=== PATIENT | female | born 2000 | race Caucasian/White ===

== ENCOUNTER 2022-12-09 11:52 | Emergency (ER) | payer BC ==
[2022-12-09 12:22] LABS: Bilirubin 1+ (Negative); Blood, Urine 10 (Negative); Clarity Cloudy (Clear); Glucose, Urine (Dipstick) Normal (Negative); Ketone, Urine 50 mg/dL (Negative); Leukocyte 500 (Negative); Nitrite Negative (Negative); Protein, Urine (Dipstick) 30 mg/dl (Neg-Trace); Specific Gravity, Urine 1.025 (1.005-1.030)
[2022-12-09 12:25] LABS: #Monocytes 0.8 10x3/uL (0.0-1.1); #Neutrophils 8.4 10x3/uL (1.5-8.4); %Basophils 0.3 % (0.0-2.0); %Eosinophils 2.6 % (0.0-6.0); %Lymphocytes 18.8 % (18.0-47.0); %Monocytes 6.5 % (0.0-10.0); %Neutrophils 71.5 % (40.0-75.0); Hemoglobin 12.9 g/dL (12.0-15.5); Mean Corpuscular HGB CONC 33.3 g/dL (32.0-36.0); Mean Corpuscular Hemoglobin 29.5 pg (27.0-33.0); Mean Corpuscular Volume 88.4 fl (81.6-98.3); Mean Platelet Volume 8.8 fl (7.4-10.4); Platelet Count 328 10x3/uL (150-450); RBC Distribution Width 12.3 % (11.5-14.5); Red Blood Cell (RBC) Count 4.38 10x6/uL (3.90-5.03); White Blood Cell (WBC) Count 11.7 10x3/uL (3.5-10.5)
[2022-12-09 12:26] LABS: #Eosinphils 0.3 10x3/uL (0.0-0.5)
[2022-12-09 12:33] LABS: Bacteria/HPF 3+ HPF (None Seen); Mucous/LPF 2+ LPF (<2+); Squamous Epithelial 21-50 HPF (0-3)
[2022-12-09 12:34] LABS: White Blood Cell Cast 0-3 LPF (None Seen)
[2022-12-09] MEDS ORDERED: Ondansetron PF 4 MG/2 ML Vial ONE (12:35)
[2022-12-09 12:39] LABS: ALT (SGPT) 53 U/L (8-55); AST (SGOT) 28 U/L (5-34); Albumin 3.7 g/dL (3.5-5.0); Alkaline Phosphatase 81 U/L (40-110); Anion Gap 17 mmol/L (10-20); BUN (Urea Nitrogen) 5 mg/dL (7.0-18.7); Bilirubin, Total 0.3 mg/dL (0.2-1.2); Calc. Creatinine Clearance 0 mL/min (70-130); Calcium 9.2 mg/dL (7.8-10.44); Carbon Dioxide 18 mmol/L (22-29); Chloride 107 mmol/L (98-107); Estimated GFR 128; Globulin 3.6 g/dL (2.4-3.5); Glucose 92 mg/dL (70-105); Potassium 3.7 mmol/L (3.5-5.1); Protein, Total 7.3 g/dL (6.0-8.3); Sodium 138 mmol/L (136-145)
[2022-12-09] MEDS ORDERED: cefTRIAXone (ROCEPHIN) 1 GM VIAL ONE (13:01)
[2022-12-09] MEDS ORDERED: Acetaminophen 500 MG TAB ONE (14:49)
== END 2022-12-09 15:05 | disposition home or self-care (01) ==
LOC: CSHERS 11:52
DX: O23.42 Unspecified infection of urinary tract in pregnancy, second trimester (principal); O99.352 Diseases of the nervous system complicating pregnancy, second trimester; G40.909 Epilepsy, unspecified, not intractable, without status epilepticus; Z3A.18 18 weeks gestation of pregnancy
CPT/HCPCS: 36415; 76815; 80053; 81003; 81015; 84702; 85025; 86900; 86901; 96374; 96375; J0696; J2405

== ENCOUNTER 2023-03-16 22:55 | Day surgery (SDC) | payer BC ==
[2023-03-16 23:22] VITALS: BMI 33.4
[2023-03-16 23:51] LABS: Fetal Membranes Rupture No Membranes Rupture (No Rupture)
[2023-03-17] MEDS ORDERED: hydrALAZINE 20 MG/ML VIAL SLOW IVP PRN
[2023-03-17] MEDS ORDERED: Lactated Ringer's 1,000 ML IV SCH (01:15)
[2023-03-17 01:44] LABS: Bilirubin Neg (Negative); Blood, Urine Negative (Negative); Clarity Clear (Clear); Glucose, Urine (Dipstick) Normal (Negative); Ketone, Urine Negative (Negative); Leukocyte 25 (Negative); Nitrite Negative (Negative); Protein, Urine (Dipstick) 15 mg/dl (Neg-Trace); Specific Gravity, Urine 1.015 (1.005-1.030); Urobilinogen Normal mg/dL (Less than 2); pH, Urine 6.5 (5.0-9.0)
[2023-03-17 01:58] LABS: Bacteria/HPF None Seen HPF (None Seen); CAUTI Indications for Culture Dysuria,urgency,freq; RBC/HPF None Seen HPF (0-3); Squamous Epithelial 0-3 HPF (0-3); WBC/HPF 0-3 HPF (0-3)
[2023-03-17 01:59] LABS: Urine Culture Reflex No No
== END 2023-03-17 02:20 | disposition home or self-care (01) ==
LOC: CSHLD/OP 22:55
PROVIDERS: ATTEND Obstetrics & Gynecology
DX: O47.03 False labor before 37 completed weeks of gestation, third trimester (principal); O41.93X0 Disorder of amniotic fluid and membranes, unspecified, third trimester, not applicable or unspecified; O99.343 Other mental disorders complicating pregnancy, third trimester; F41.9 Anxiety disorder, unspecified; O23.03 Infections of kidney in pregnancy, third trimester; N12 Tubulo-interstitial nephritis, not specified as acute or chronic; O99.353 Diseases of the nervous system complicating pregnancy, third trimester; G40.909 Epilepsy, unspecified, not intractable, without status epilepticus; Z88.8 Allergy status to other drugs, medicaments and biological substances; Z3A.31 31 weeks gestation of pregnancy; Z79.899 Other long term (current) drug therapy
CPT/HCPCS: 81001; 84112; 87480; 87510; 87660

== ENCOUNTER 2023-03-25 18:27 | Observation (INO) | payer BC ==
[2023-03-25] MEDS ORDERED: hydrALAZINE 20 MG/ML VIAL SLOW IVP PRN (19:44)
[2023-03-25] MEDS ORDERED: Lactated Ringer's 1,000 ML IV SCH ×2 (19:45→23:00)
[2023-03-25 20:37] VITALS: BMI 33.9
[2023-03-25 20:39] LABS: Bilirubin Neg (Negative); Blood, Urine Negative (Negative); Clarity Clear (Clear); Glucose, Urine (Dipstick) Normal (Negative); Ketone, Urine 150 mg/dL (Negative); Leukocyte Negative (Negative); Nitrite Negative (Negative); Protein, Urine (Dipstick) Negative (Neg-Trace); Specific Gravity, Urine 1.015 (1.005-1.030); Urobilinogen Normal mg/dL (Less than 2); pH, Urine 6.5 (5.0-9.0)
[2023-03-25 20:50] LABS: Bacteria/HPF Rare-Few HPF (None Seen); CAUTI Indications for Culture Pregnancy; RBC/HPF None Seen HPF (0-3); Squamous Epithelial 0-3 HPF (0-3); Urine Culture Reflex Yes Yes; WBC/HPF 0-3 HPF (0-3)
[2023-03-25 20:57] LABS: Fetal Membranes Rupture No Membranes Rupture (No Rupture)
[2023-03-25 21:59] LABS: #Eosinphils 0.2 10x3/uL (0.0-0.5); #Monocytes 0.8 10x3/uL (0.0-1.1); #Neutrophils 9.7 10x3/uL (1.5-8.4); %Basophils 0.2 % (0.0-2.0); %Eosinophils 1.6 % (0.0-6.0); %Lymphocytes 18.7 % (18.0-47.0); %Neutrophils 72.6 % (40.0-75.0); Hematocrit 26.6 % (34.9-44.5); Hemoglobin 8.7 g/dL (12.0-15.5); Mean Corpuscular HGB CONC 32.7 g/dL (32.0-36.0); Mean Corpuscular Hemoglobin 27.2 pg (27.0-33.0); Mean Corpuscular Volume 83.1 fl (81.6-98.3); Platelet Count 294 10x3/uL (150-450); RBC Distribution Width 12.8 % (11.5-14.5); White Blood Cell (WBC) Count 13.3 10x3/uL (3.5-10.5)
[2023-03-25 22:26] LABS: ALT (SGPT) 15 U/L (8-55); AST (SGOT) 16 U/L (5-34); Alkaline Phosphatase 130 U/L (40-110); Anion Gap 14 mmol/L (10-20); BUN (Urea Nitrogen) 4 mg/dL (7.0-18.7); Bilirubin, Total 0.2 mg/dL (0.2-1.2); Calc. Creatinine Clearance 245 mL/min (70-130); Calcium 8.1 mg/dL (7.8-10.44); Carbon Dioxide 20 mmol/L (22-29); Chloride 107 mmol/L (98-107); Estimated GFR 131; Globulin 2.3 g/dL (2.4-3.5); Glucose 85 mg/dL (70-105); Potassium 3.2 mmol/L (3.5-5.1); Protein, Total 5.3 g/dL (6.0-8.3); Sodium 138 mmol/L (136-145)
[2023-03-25] MEDS ORDERED: Ondansetron PF 4 MG/2 ML Vial IVP PRN (22:49)
[2023-03-25] MEDS ORDERED: Promethazine HCl 25 MG/ML VIAL IM PRN (22:49)
[2023-03-25] MEDS: Betamet Acet/Betamet Na Ph 30 MG/5 ML VIAL IM SCH (23:10)
[2023-03-25] MEDS ORDERED: Potassium Bicarbonate/Cit Ac 20 MEQ TAB PO SCH (23:15)
[2023-03-26] MEDS ORDERED: Acetaminophen 500 MG TAB PO PRN (05:05)
[2023-03-26] MEDS ORDERED: NIFEdipine 10 MG CAP PO SCH (09:15)
[2023-03-26] MEDS ORDERED: fentaNYL 50 mcg/mL 1 mL Vial SLOW IVP SCH (09:15)
[2023-03-26] MEDS ORDERED: NIFEdipine 10 MG CAP PO PRN (10:30)
[2023-03-26] MEDS: NIFEdipine 10 MG CAP PO PRN ×2 (15:53→21:14)
[2023-03-26] MEDS: Betamet Acet/Betamet Na Ph 30 MG/5 ML VIAL IM SCH (23:44)
[2023-03-27 09:27] LABS: Group B Streptococcus by PCR Not Detected (NotDetected)
== END 2023-03-27 00:28 | disposition home or self-care (01) ==
LOC: CSHLD/OP 18:27 → CSHLD 22:49
PROVIDERS: ADMIT Obstetrics & Gynecology; ATTEND Obstetrics & Gynecology
DX: O47.03 False labor before 37 completed weeks of gestation, third trimester (principal); O99.013 Anemia complicating pregnancy, third trimester; D64.9 Anemia, unspecified; O21.2 Late vomiting of pregnancy; O99.613 Diseases of the digestive system complicating pregnancy, third trimester; R19.7 Diarrhea, unspecified; Z3A.33 33 weeks gestation of pregnancy; Z88.8 Allergy status to other drugs, medicaments and biological substances
CPT/HCPCS: 76815; 80053; 81001; 84112; 85025; 87086; 87480; 87510; 87653; 87660; 99285; J0702; J3010; J7120

== ENCOUNTER 2023-04-01 16:20 | Day surgery (SDC) | payer BC ==
[2023-04-01 16:59] VITALS: BMI 34.2
[2023-04-01] MEDS ORDERED: hydrALAZINE 20 MG/ML VIAL SLOW IVP PRN (17:15)
[2023-04-01] MEDS ORDERED: Lactated Ringer's 1,000 ML IV SCH (17:30)
[2023-04-01 17:41] LABS: Fetal Membranes Rupture No Membranes Rupture (No Rupture)
[2023-04-01 18:39] LABS: Amphetamine Not Detected (NotDetected); Barbiturates Screen Not Detected (NotDetected); Benzodiazepine Screen Not Detected (NotDetected); Cocaine Metabolite Screen Not Detected (NotDetected); Methadone Not Detected (NotDetected); Methamphetamine Not Detected (NotDetected); Opiate Screen Not Detected (NotDetected); Oxycodone Screen Not Detected (NotDetected); Phencyclidine (PCP) Not Detected (NotDetected); THC/Cannabinoid Screen Not Detected (NotDetected); Tricyclic Screen Not Detected (NotDetected)
== END 2023-04-01 19:31 | disposition home or self-care (01) ==
LOC: CSHLD/OP 16:20
PROVIDERS: ATTEND Obstetrics & Gynecology
DX: O47.03 False labor before 37 completed weeks of gestation, third trimester (principal); Z3A.34 34 weeks gestation of pregnancy; Z88.8 Allergy status to other drugs, medicaments and biological substances
CPT/HCPCS: 80306; 84112; 96360; 96361; 99285

== ENCOUNTER 2023-04-15 21:37 | Day surgery (SDC) | payer BC ==
[2023-04-15] MEDS ORDERED: hydrALAZINE 20 MG/ML VIAL SLOW IVP PRN (22:39)
[2023-04-15] MEDS ORDERED: Lactated Ringer's 1,000 ML IV SCH (22:45)
[2023-04-15 23:20] LABS: #Eosinphils 0.1 10x3/uL (0.0-0.5); #Monocytes 0.8 10x3/uL (0.0-1.1); #Neutrophils 9.2 10x3/uL (1.5-8.4); %Basophils 0.2 % (0.0-2.0); %Lymphocytes 18.7 % (18.0-47.0); %Neutrophils 73.2 % (40.0-75.0); Hematocrit 29.1 % (34.9-44.5); Hemoglobin 9.3 g/dL (12.0-15.5); Mean Corpuscular Hemoglobin 25.5 pg (27.0-33.0); Mean Corpuscular Volume 79.7 fl (81.6-98.3); Platelet Count 329 10x3/uL (150-450); RBC Distribution Width 13.4 % (11.5-14.5); Red Blood Cell (RBC) Count 3.65 10x6/uL (3.90-5.03); White Blood Cell (WBC) Count 12.6 10x3/uL (3.5-10.5)
[2023-04-15 23:33] LABS: ALT (SGPT) 25 U/L (8-55); AST (SGOT) 18 U/L (5-34); Albumin 3.2 g/dL (3.5-5.0); Alkaline Phosphatase 185 U/L (40-110); Anion Gap 14 mmol/L (10-20); BUN (Urea Nitrogen) 5 mg/dL (7.0-18.7); Bilirubin, Total 0.2 mg/dL (0.2-1.2); Calc. Creatinine Clearance 0 mL/min (70-130); Calcium 8.9 mg/dL (7.8-10.44); Carbon Dioxide 19 mmol/L (22-29); Chloride 108 mmol/L (98-107); Estimated GFR 132; Globulin 2.7 g/dL (2.4-3.5); Glucose 114 mg/dL (70-105); Potassium 3.5 mmol/L (3.5-5.1); Protein, Total 5.9 g/dL (6.0-8.3); Sodium 137 mmol/L (136-145)
[2023-04-15 23:34] VITALS: BMI 34.2
[2023-04-15 23:45] LABS: Fetal Membranes Rupture No Membranes Rupture (No Rupture)
== END 2023-04-16 01:05 | disposition home or self-care (01) ==
LOC: CSHLD/OP 21:37
PROVIDERS: ATTEND Obstetrics & Gynecology
DX: O47.03 False labor before 37 completed weeks of gestation, third trimester (principal); O99.013 Anemia complicating pregnancy, third trimester; D64.9 Anemia, unspecified; O99.343 Other mental disorders complicating pregnancy, third trimester; F41.9 Anxiety disorder, unspecified; O99.353 Diseases of the nervous system complicating pregnancy, third trimester; G40.909 Epilepsy, unspecified, not intractable, without status epilepticus; Z79.899 Other long term (current) drug therapy; Z88.8 Allergy status to other drugs, medicaments and biological substances; Z3A.36 36 weeks gestation of pregnancy
CPT/HCPCS: 80053; 84112; 85025; 87480; 87510; 87660; 96360; 96361; 99285

== ENCOUNTER 2023-04-25 02:59 | Inpatient (IN) | payer BC ==
[2023-04-25 04:21] VITALS: BMI 35.1
[2023-04-25 04:21] LABS: Fetal Membranes Rupture No Membranes Rupture (No Rupture)
[2023-04-25] MEDS ORDERED: hydrALAZINE 20 MG/ML VIAL SLOW IVP PRN ×3 (04:40→18:01)
[2023-04-25] MEDS ORDERED: Promethazine HCl 25 MG/ML VIAL IM PRN ×2 (06:05→17:38)
[2023-04-25] MEDS ORDERED: Tranexamic Acid 1,000 MG/10 ML VIAL IVP PRN (06:05)
[2023-04-25] MEDS ORDERED: Diphenoxylate HCl/Atropine Tablet PO PRN (06:05)
[2023-04-25] MEDS ORDERED: Carboprost 250 MCG/ML AMP IM PRN (06:05)
[2023-04-25] MEDS ORDERED: Lidocaine 1% (PF) 30 ML VIAL SC PRN (06:05)
[2023-04-25] MEDS ORDERED: Misoprostol 200 MCG TAB PR PRN (06:05)
[2023-04-25] MEDS ORDERED: Acetaminophen 500 MG TAB PO PRN (06:05)
[2023-04-25] MEDS ORDERED: fentaNYL 50 mcg/mL 1 mL Vial SLOW IVP PRN (06:05)
[2023-04-25] MEDS ORDERED: Zolpidem Tartrate 5 MG TAB PO PRN (06:05)
[2023-04-25] MEDS ORDERED: Ondansetron PF 4 MG/2 ML Vial IVP PRN ×2 (06:05→17:38)
[2023-04-25] MEDS ORDERED: Methylergonovine 0.2 MG/ML VIAL IM PRN (06:05)
[2023-04-25] MEDS ORDERED: Oxytocin 30 units/NS 500 ML 500 ML IV SCH ×3 (06:15→18:15)
[2023-04-25 06:35] LABS: Hematocrit 28.3 % (34.9-44.5); Mean Corpuscular HGB CONC 31.8 g/dL (32.0-36.0); Mean Corpuscular Hemoglobin 25.5 pg (27.0-33.0); Mean Corpuscular Volume 80.2 fl (81.6-98.3); Mean Platelet Volume 9.2 fl (7.4-10.4); Platelet Count 375 10x3/uL (150-450); RBC Distribution Width 13.8 % (11.5-14.5); Red Blood Cell (RBC) Count 3.53 10x6/uL (3.90-5.03); White Blood Cell (WBC) Count 13.7 10x3/uL (3.5-10.5)
[2023-04-25 06:56] LABS: HBSAg Index 0.18 S/CO (0-0.99); Hep B Surf Ag - L&D Non-Reactive S/CO (NonReactive); Syphilis Antibody Nonreactive (Nonreactive); Syphilis Antibody Index 0.06 S/CO (<1.00 Non-Reactive)
[2023-04-25] MEDS ORDERED: fentaNYL/Ropivacaine Epidural 100 ML ONE (16:46)
[2023-04-25] MEDS ORDERED: Lactated Ringer's 500 ML IV PRN (17:38)
[2023-04-25] MEDS ORDERED: Naloxone HCl 0.4 mg/ml Vial IVP PRN ×2 (17:38)
[2023-04-25] MEDS ORDERED: ePHEDrine Sulfate 50 MG/10 ML VIAL SLOW IVP PRN (17:38)
[2023-04-25] MEDS ORDERED: diphenhydrAMINE 50 MG/ML VIAL IVP PRN (17:38)
[2023-04-25] MEDS ORDERED: Moisturizing Cream (Eucerin) 113 GM JAR TOP PRN (17:38)
[2023-04-25] MEDS ORDERED: Acetaminophen 325 MG TAB PO PRN (17:38)
[2023-04-25] MEDS ORDERED: fentaNYL 2 mcg/Ropivacaine 0.2% Epidural 100 ML CADD EPIDURAL SCH (17:45)
[2023-04-25] MEDS ORDERED: Communication Order-Pharmacy FS SCH (17:45)
[2023-04-25] MEDS ORDERED: Benzocaine-Menthol 82.5 ML CAN TOP PRN (18:01)
[2023-04-25] MEDS ORDERED: traMADol HCl 50 MG TAB PO PRN (18:01)
[2023-04-25] MEDS ORDERED: Boostrix 0.5 ML (Tdap) VIAL (>/=7 yrs of age) IM ONE (18:01)
[2023-04-25] MEDS ORDERED: Preparation H Ointment 28 GM TUBE PR PRN (18:01)
[2023-04-25] MEDS ORDERED: Milk Of Magnesia 30 ML UDCUP PO PRN (18:01)
[2023-04-25] MEDS ORDERED: Bisacodyl 10 MG SUPP PR PRN (18:01)
[2023-04-25] MEDS ORDERED: diphenhydrAMINE 25 MG CAP PO PRN (18:01)
[2023-04-25] MEDS: Lactated Ringer's 1,000 ML IV SCH (19:00)
[2023-04-25] MEDS ORDERED: Bupivacaine 0.25% HCL 30 ML VIAL ONE (19:45)
[2023-04-25] MEDS ORDERED: Lidocaine 2% MPF 10 ML AMP (For Epidural Use) ONE (19:45)
[2023-04-25] MEDS ORDERED: Bupivacaine PF 0.5% 30 ML VIAL ONE (19:45)
[2023-04-25] MEDS: Docusate 100 MG CAP PO SCH (21:30)
[2023-04-25] MEDS: Ibuprofen 800 MG TAB PO SCH (21:30)
[2023-04-26] MEDS: Ibuprofen 800 MG TAB PO SCH ×3 (05:19→21:25)
[2023-04-26] MEDS: Docusate 100 MG CAP PO SCH ×2 (12:15→21:25)
[2023-04-26] MEDS: Prenatal Vitamin 1 TAB PO SCH (12:15)
[2023-04-26] MEDS: Ferrous Sulfate 325 MG TAB PO SCH (12:15)
[2023-04-26] MEDS ORDERED: Witch Hazel-Glycerin 1 EACH JAR TOP PRN (14:30)
[2023-04-27] MEDS: Ibuprofen 800 MG TAB PO SCH (05:15)
[2023-04-27] MEDS: Ferrous Sulfate 325 MG TAB PO SCH ×2 (07:52→08:13)
[2023-04-27] MEDS: Docusate 100 MG CAP PO SCH (08:13)
[2023-04-27] MEDS: Prenatal Vitamin 1 TAB PO SCH (08:13)
[2023-04-27 09:41] VITALS: BP 111/75; TEMP 97.4
== END 2023-04-27 11:50 | disposition home or self-care (01) | DRG 807 ==
LOC: CSHLD/OP 02:59 → CSHLD 04:20 → CSHPP 20:24
PROVIDERS: ADMIT Obstetrics & Gynecology; ATTEND Obstetrics & Gynecology
PROC: 10E0XZZ Delivery of Products of Conception, External Approach (ICD-10-PCS; principal; 2023-04-25)
PROC: 0HQ9XZZ Repair Perineum Skin, External Approach (ICD-10-PCS; 2023-04-25)
PROC: 10907ZC Drainage of Amniotic Fluid, Therapeutic from Products of Conception, Via Natural or Artificial Opening (ICD-10-PCS; 2023-04-25)
DX: O42.02 Full-term premature rupture of membranes, onset of labor within 24 hours of rupture (principal); Z37.0 Single live birth; Z3A.37 37 weeks gestation of pregnancy
CPT/HCPCS: 84112; 85027; 86780; 86850; 86900; 86901; 87340; 99285; J2590; J3010; S0020